=== PATIENT | female | born 1955 | race African-American/Black ===

== ENCOUNTER 2021-12-05 12:06 | Day surgery (SDC) | payer MEDICARE, MEDICAID ==
[~2021-12-05] VITALS: Ht 167.6 cm; Wt 112.5 kg
[~2021-12-05 12:06] MED LIST: SODIUM CHLORIDE 0.9% 1,000 ML IV SCH
[2021-12-05] MEDS ORDERED: BACITRACIN 15GM TUBE TOP ONE (14:22)
[2021-12-05] MEDS ORDERED: LIDOCAINE HCL 1% 10 MG/ML 10ML VIAL ONE (14:22)
[2021-12-05] MEDS ORDERED: POLYMYXIN B SULFATE 500000 UNITS/VIAL ONE (14:23)
[2021-12-05] MEDS ORDERED: BUPIVACAINE HCL/PF 0.5% (5MG/ML) 10ML ONE (14:23)
[2021-12-05] MEDS ORDERED: GLYCOPYRROLATE 0.2 MG/ML 2ML VIAL ONE (14:44)
[2021-12-05] MEDS ORDERED: DEXAMETHASONE 4MG/ML 1ML VIAL ONE (14:52)
[2021-12-05] MEDS ORDERED: CEFAZOLIN SODIUM 1000MG/VIAL ONE (14:52)
[2021-12-05] MEDS ORDERED: TRIAMCINOLONE ACETONIDE 40MG/ML 1ML VIAL ONE (15:22)
[2021-12-05] MEDS ORDERED: ATEN50TA MT (16:00)
[2021-12-05] MEDS ORDERED: LOSA50TA41 MT (16:00)
[2021-12-05] MEDS ORDERED: CHLO25TA2 MT (16:00)
[2021-12-05] MEDS: HYDRALAZINE 20MG/ML VIAL IV PRN ×2 (17:42→17:55)
== END 2021-12-05 19:15 | disposition home or self-care (01) ==
LOC: OR 12:06
PROVIDERS: ATTEND Podiatrist Foot & Ankle Surgery
DX: R22.41 Localized swelling, mass and lump, right lower limb (principal); I10 Essential (primary) hypertension; R73.03 Prediabetes; Z79.899 Other long term (current) drug therapy; Z98.890 Other specified postprocedural states; Z20.822 Contact with and (suspected) exposure to COVID-19
CPT/HCPCS: 27632; 82962; 87426; 88304; J0360; J0690; J1100; J3301; J3490